=== PATIENT | male | born 1945 | race Caucasian/White ===

== ENCOUNTER → 2020-02-03 10:27 | Outpatient (BNVA) | payer MEDICARE, SELFPAY | PROVIDERS: PCP Family Medicine; Referring Provider Family Medicine; Visit Provider Nurse Practitioner Gerontology | DX: N40.1 Benign prostatic hyperplasia with lower urinary tract symptoms (principal); N13.8 Other obstructive and reflux uropathy; N32.89 Other specified disorders of bladder; I10 Essential (primary) hypertension | CPT/HCPCS: 81003; 99204 ==

== ENCOUNTER → 2020-04-05 09:08 | Outpatient (BNVA) | payer MEDICARE, SELFPAY | PROVIDERS: PCP Family Medicine; Referring Provider Family Medicine; Visit Provider Nurse Practitioner Gerontology | DX: N40.1 Benign prostatic hyperplasia with lower urinary tract symptoms (principal); N13.8 Other obstructive and reflux uropathy | CPT/HCPCS: 81003; 99213 ==

== ENCOUNTER 2020-06-30 08:32 | Outpatient (CLI) | payer MEDICARE, SELFPAY ==
--- NOTE | 2020-06-30 08:15 | DI.RAD_ITS ---
EXAM: XR HIP RT COMPLETE AP PELVIS CLINICAL HISTORY: right hip pain TECHNIQUE: COMPARISON: No exams were available for comparison FINDINGS: Views were obtained. The cartilaginous joint spaces of the hips appear fairly well maintained. Mild marginal osteophyte formation of the acetabula and femoral heads noted. No other significant bony a bnormality seen involving the hips. Partial left SI joint fusion noted. IMPRESSION: Mild DJD both hips. RADIATION DOSE DELIVERED: Total DLP
== END 2020-06-30 08:52 ==
PROVIDERS: PCP Family Medicine; Referring Provider Family Medicine; Visit Provider Student in an Organized Health Care Education/Training Program
DX: M16.0 Bilateral primary osteoarthritis of hip (principal)
CPT/HCPCS: 99203; 99214; 73502

== ENCOUNTER 2020-07-27 01:41 | Outpatient (CLI) | payer MEDICARE, SELFPAY ==
[2020-07-27] MEDS: Bupivacaine 0.5% Pres-Free 10 ML VIAL 5 ML IJ (14:52)
[2020-07-27] MEDS: Omnipaque 300 MG/ML 10 ML BTL IJ (14:57)
--- NOTE | 2020-07-27 22:31 | W.PROCNOTE ---
Date of service: 07/27/20 Time of Service: 13:01 Procedure Note Date of procedure: 07/27/20 Procedure: Right Hip Injection with Fluoroscopic Guidance Surgeon/Proceduralist/Physician: Edy Elmore Procedure Diagnosis: Right Hip Osteoarthritis Procedure Indications: Ryan has had persistent pain of the RIGHT hip and groin. Noninvasive measures have been tried. To serve as both diagnostic and therapeutic, an injection under fluoroscopy was recommended. I had discussed the risks of the procedure and the patient elected to proceed. Procedure Description: Ryan was greeted in the flouroscopy room. The correct side was identified and the consent was reviewed with the patient and signed. The patient was then placed in the supine position on the fluoroscopy table. The RIGHT hip was then prepped with Chloraprep. The anterolateral injection starting point was identiifed by bony landmarks and fluoroscopy. The skin and soft tissue in the tract of the injection was anesthetized with 1% Lidocaine. A spinal needle was then inserted deep into the hip joint at the level of the lateral femoral neck under fluoroscopic guidance. A small amount of Omnipaque solution was injected to confirm intraarticular placement. Once confirmed, the hip was injected with 6cc of 0.5% Bupivicaine and 80mg of Depo-Medrol. A bandaid was placed on the injection site. The patient tolerated the procedure well and noted improvement in pre-injection pain.
== END 2020-07-27 02:01 ==
PROVIDERS: PCP Family Medicine; Visit Provider Student in an Organized Health Care Education/Training Program
DX: M25.551 Pain in right hip (principal); M16.11 Unilateral primary osteoarthritis, right hip; R10.31 Right lower quadrant pain
CPT/HCPCS: 20610; 76000

== ENCOUNTER 2020-09-14 10:23 | Outpatient (CLI) | payer MEDICARE, SELFPAY | END 2020-09-14 10:43 | PROVIDERS: PCP Family Medicine; Referring Provider Family Medicine; Visit Provider Student in an Organized Health Care Education/Training Program | DX: M16.11 Unilateral primary osteoarthritis, right hip (principal); Z98.890 Other specified postprocedural states | CPT/HCPCS: 99213; 72170 ==

== ENCOUNTER 2020-10-05 00:56 | Outpatient (CLI) | payer MEDICARE, SELFPAY ==
[2020-10-06 18:54] LABS: COVID-19 RT-PCR UVMMC Result Negative (Negative)
== END 2020-10-05 01:16 ==
PROVIDERS: PCP Family Medicine; Visit Provider Student in an Organized Health Care Education/Training Program
DX: Z11.59 Encounter for screening for other viral diseases (principal); Z01.818 Encounter for other preprocedural examination
CPT/HCPCS: U0003

== ENCOUNTER 2020-10-05 02:50 | Outpatient (CLI) | payer MEDICARE, SELFPAY ==
[2020-10-05 10:27] LABS: HCT 44.5 % (40.0-50.0); HGB 15.1 g/dL (13.5-17.5); MCHC 33.9 % (32.0-36.0); MCV 97.2 fL (80-95); MPV 9.7 fL (8.0-11.0); Platelet Count 266 10^3/uL (130-400); RBC 4.58 10^6/uL (4.36-5.78); RDW 12.9 % (11.8-14.1); RDW-SD 46.5 fL; WBC 6.69 10^3/uL (4.4-10.8)
[2020-10-05 10:58] LABS: Anion Gap 6.4 mmol/L (3-11); BUN 14 mg/dL (7-18); CO2 29.6 mmol/L (21.0-32.0); CREATININE 1.13 mg/dL (0.70-1.30); Chloride 104 mmol/L (98-107); Glucose 91 mg/dL (74-106); Potassium 4.8 mmol/L (3.5-5.1); Sodium 140 mmol/L (136-145)
== END 2020-10-05 03:10 ==
PROVIDERS: PCP Family Medicine; Visit Provider Student in an Organized Health Care Education/Training Program
DX: M25.551 Pain in right hip (principal); M16.11 Unilateral primary osteoarthritis, right hip; Z01.818 Encounter for other preprocedural examination; Z01.812 Encounter for preprocedural laboratory examination
CPT/HCPCS: 36415; 80048; 85027; 86850; 86900; 86901; U0003

== ENCOUNTER 2020-10-11 06:00 | Day surgery (SDC) | payer MEDICARE, SELFPAY ==
[2020-10-11] VITALS (9 sets, daily range): BP systolic 82–110; BP diastolic 50–66; PULSE 53–58; RESP 12–18; TEMP 36.3–36.5; O2SAT 95–100
[2020-10-11] MEDS: Lactated Ringers 1,000 ML 30 ML IV (06:50)
[2020-10-11] MEDS: Acetaminophen 500 MG TAB 1000 MG PO (06:59)
[2020-10-11] MEDS: Celecoxib 200 MG CAP 400 MG PO (06:59)
--- NOTE | 2020-10-11 07:25 | W.PM.DS.N ---
Documented by User: Mariama Wilson 10/11/20 07:29 DS: Diagnosis Discharge Diagnosis (1) Degenerative joint disease of right hip: Status: Acute Discharge Plan Disposition Patient Disposition: HOME Condition: Good Discharge Details Reason For Visit: Right hip DJD Attending Provider: Edy Elmore Primary Care Provider: Joaquin Barajas Home Meds and New Rx's Prescriptions: New acetaminophen 500 mg tablet 500 mg PO Q6H PRN (Reason: pain) Qty: 60 RF: 2 aspirin 81 mg tablet,delayed release (DR/EC) 81 mg PO BID 30 Days Qty: 60 RF: 0 docusate sodium [Colace] 100 mg capsule 100 mg PO BID Qty: 30 RF: 0 oxycodone 5 mg tablet 5 mg PO Q6H PRN (Reason: severe post-operative pain) Qty: 12 RF: 0 pantoprazole 40 mg tablet,delayed release (DR/EC) 40 mg PO DAILY 30 Days Qty: 30 RF: 0 Continued nifedipine [Procardia XL] 90 mg tablet extended release 24hr 90 mg PO DAILY RF: 0 metoprolol succinate 50 mg tablet extended release 24 hr 50 mg PO DAILY RF: 0 spironolactone 25 mg tablet 25 mg PO DAILY RF: 0 tamsulosin 0.4 mg capsule 0.4 mg PO DAILY RF: 0 Discharge Instructions Additional Instructions: Total Hip Discharge Instructions Activity: The most important activity is to walk. You should try to take short walks a few times a day. You have no restrictions on movement or positioning, but do not try to force what you do. You will find some stiffness and weakness with hip flexion (lifting your knee). Do not try to strengthen this too early, continue to practice walking and stairs and this will come. - Outpatient physical therapy can be helpful to help return you to a normal gait and improve your flexibility and strength. This can start around 2 weeks. For some patients, it?s not necessary. Usually this is determined at the time of discharge or at the first post-operative visit. - You should wear the DORY hose on both legs for 2 weeks. Dressing: Keep the surgical dressing in place for at least one week. After the first week it may be removed and replace with light gauze and tape or nothing. It may get wet after 3 days but avoid soaking the dressing. If it gets wet, just lightly pat dry. It is important to always keep some gauze between skin folds, especially when you are sitting. Spend some time with the wound exposed when you are lying flat as the incision does wrinkle onto itself. Medications: - You should take Tylenol and an anti-inflammatory Celebrex as your primary pain control medications. If the Celebrex is too expensive or not covered, please call the office for another alternative (Advil/Ibuprofen or Naproxen/Aleve). - You have been prescribed a stronger pain medication Oxycodone for breakthrough pain, take as needed as prescribed. - You have also been prescribed a stomach acid reduction agent Pantoprozole to help reduce stomach acid and reflux. - You will be taking Aspirin 81mg twice a day for DVT prevention unless instructed otherwise. - If you have constipation you should take Colace (which was prescribed) or Miralax (which you may purchase [id number]). It takes most people 3-4 days to have a bowel movement. Follow-up: 2 weeks If you have any acute concerns or questions, please do not hesitate to contact the office at [phone]. You may contact Dr. Elmore with any questions after hours through the hospital at [phone] or on his cell phone at [phone]. Referrals: Edy Elmore MD [ [facility] STAFF PHYSICIAN] - Equipment/Supplies: Walker Activity:: Activity as Tolerated Remove Dressings/Wound Care:: Do Not Remove Shower/Bathe:: 72 hours Diet:: As Tolerated Discharge Orders Discharge Orders: Discharge Order (Routine); Ordered 10/11/20 Ordered By: Edy Elmore DS: Data Vitals/I&O Vitals and I&O: Vital Signs Temperature 36.5 C 10/11/20 06:25 Pulse 54 L 10/11/20 06:25 Pulse Rhythm Regular 10/11/20 06:25 Respiratory Rate 16 10/11/20 06:25 Respiratory Depth Normal 10/11/20 06:25 Blood Pressure 104/66 10/11/20 06:25 Pulse Oximetry 99 10/11/20 06:25 Oxygen Delivery Method Room Air 10/11/20 06:25 Oxygen Flow Rate 0 10/11/20 06:25 Pain Level 0 10/11/20 06:25 Intake & Output 10/10/20 10/10/20 10/11/20 11:59 23:59 11:59 Weight 73.6 kg PFSH Medical History (Updated 10/11/20 @ 06:30 by Nabila Mccabe) Degenerative joint disease of right hip History of back injury History of melanoma History of trigger finger Hypertension Surgical History (Updated 10/11/20 @ 06:30 by Nabila Mccabe) History of esophagogastroduodenoscopy (EGD) Hx of colonoscopy Social History Smoking/Tobacco Use Status: Never Smoking risk assessment performed?: Yes Alcohol Intake: current Alcohol Intake frequency: 0-2 drinks per day Alcohol type: beer, wine and hard liquor Drug use: Never Substance use type: does not use Do you feel safe at home: Yes Do you feel safe in your relationship?: Yes Documented by User: Edy Elmore MD 10/11/20 12:00 Date of service: 10/11/20 Time of Service: 11:59 Discharge Plan Disposition Patient Disposition: HOME Condition: Good Discharge Details Reason For Visit: Right hip DJD Attending Provider: Edy Elmore Primary Care Provider: Joaquin Barajas Home Meds and New Rx's Prescriptions: New acetaminophen 500 mg tablet 500 mg PO Q6H PRN (Reason: pain) Qty: 60 RF: 2 aspirin 81 mg tablet,delayed release (DR/EC) 81 mg PO BID 30 Days Qty: 60 RF: 0 docusate sodium [Colace] 100 mg capsule 100 mg PO BID Qty: 30 RF: 0 oxycodone 5 mg tablet 5 mg PO Q6H PRN (Reason: severe post-operative pain) Qty: 12 RF: 0 pantoprazole 40 mg tablet,delayed release (DR/EC) 40 mg PO DAILY 30 Days Qty: 30 RF: 0 Continued nifedipine [Procardia XL] 90 mg tablet extended release 24hr 90 mg PO DAILY RF: 0 metoprolol succinate 50 mg tablet extended release 24 hr 50 mg PO DAILY RF: 0 spironolactone 25 mg tablet 25 mg PO DAILY RF: 0 tamsulosin 0.4 mg capsule 0.4 mg PO DAILY RF: 0 Discharge Instructions Additional Instructions: Total Hip Discharge Instructions Activity: The most important activity is to walk. You should try to take short walks a few times a day. You have no restrictions on movement or positioning, but do not try to force what you do. You will find some stiffness and weakness with hip flexion (lifting your knee). Do not try to strengthen this too early, continue to practice walking and stairs and this will come. - Outpatient physical therapy can be helpful to help return you to a normal gait and improve your flexibility and strength. This can start around 2 weeks. For some patients, it?s not necessary. Usually this is determined at the time of discharge or at the first post-operative visit. - You should wear the DORY hose on both legs for 2 weeks. Dressing: Keep the surgical dressing in place for at least one week. After the first week it may be removed and replace with light gauze and tape or nothing. It may get wet after 3 days but avoid soaking the dressing. If it gets wet, just lightly pat dry. It is important to always keep some gauze between skin folds, especially when you are sitting. Spend some time with the wound exposed when you are lying flat as the incision does wrinkle onto itself. Medications: - You should take Tylenol and an anti-inflammatory Celebrex as your primary pain control medications. If the Celebrex is too expensive or not covered, please call the office for another alternative (Advil/Ibuprofen or Naproxen/Aleve). - You have been prescribed a stronger pain medication Oxycodone for breakthrough pain, take as needed as prescribed. - You have also been prescribed a stomach acid reduction agent Pantoprozole to help reduce stomach acid and reflux. - You will be taking Aspirin 81mg twice a day for DVT prevention unless instructed otherwise. - If you have constipation you should take Colace (which was prescribed) or Miralax (which you may purchase [id number]). It takes most people 3-4 days to have a bowel movement. Follow-up: 2 weeks If you have any acute concerns or questions, please do not hesitate to contact the office at [phone]. You may contact Dr. Elmore with any questions after hours through the hospital at [phone] or on his cell phone at [phone]. Referrals: Edy Elmore MD [ [facility] STAFF PHYSICIAN] - Equipment/Supplies: Walker Activity:: Activity as Tolerated Remove Dressings/Wound Care:: Do Not Remove Shower/Bathe:: 72 hours Diet:: As Tolerated Discharge Orders Discharge Orders: Discharge Order (Routine); Ordered 10/11/20 Ordered By: Edy Elmore DS: Summary Status at Discharge Functional status at discharge: uses cane/walker Overall status at discharge: patient is progressing back to baseline Mental Status: mental status grossly normal Speech and Movement: speech and movement normal Mood: congruent mood Affect: normal affect Exam Psych Mental Status: mental status grossly normal Speech and Movement: speech and movement normal Mood: congruent mood Affect: normal affect [facility] Medical History (Updated 10/11/20 @ 06:30 by Nabila Mccabe) Degenerative joint disease of right hip History of back injury History of melanoma History of trigger finger Hypertension Surgical History (Updated 10/11/20 @ 06:30 by Nabila Mccabe) History of esophagogastroduodenoscopy (EGD) Hx of colonoscopy Social History Smoking/Tobacco Use Status: Never Smoking risk assessment performed?: Yes Alcohol Intake: current Alcohol Intake frequency: 0-2 drinks per day Alcohol type: beer, wine and hard liquor Drug use: Never Substance use type: does not use Do you feel safe at home: Yes Do you feel safe in your relationship?: Yes
[2020-10-11] MEDS: ceFAZolin 2 GM/50 ML BAG IVPB (07:30)
[2020-10-11] MEDS: Bupivacaine 0.25% Pres-Free 30 ML VIAL (08:52)
[2020-10-11] MEDS: Ketorolac 30 MG/ML VIAL (08:52)
--- NOTE | 2020-10-11 08:55 | DI.RAD_ITS ---
EXAM: XR HIP RT IN OR CLINICAL HISTORY: Degenerative joint disease of right hip TECHNIQUE: 2D and realtime digital imaging was performed. COMPARISON: No exams were available for comparison FINDINGS: C-arm fluoroscopy was utilized by Dr. Elmore during placement total right hip prosthesis. Hard hat copyist y shows well seated femoral and acetabular components. Fluoro time, 45.2 seconds. IMPRESSION: RADIATION DOSE DELIVERED: Total DLP
--- NOTE | 2020-10-11 09:41 | W.PM.OP ---
Date of service: 10/11/20 Time of Service: 09:42 Operative Note Operative Note DATE OF PROCEDURE: 10/11/20 PRE-OP DIAGNOSIS: Right Hip Osteoarthritis POST-OP DIAGNOSIS: same PROCEDURE: Right Anterior Total Hip Arthroplasty SURGEON: Edy Elmore SOFTWARE DESIGN ANALYST: Mariama Wilosn ANESTHESIA: spinal ESTIMATED BLOOD LOSS: 100 PATHOLOGY: none sent COMPLICATIONS: None Patient was transported to: PACU Patient's condition: stable Implants: 1. Depuy [place] Acetabular Component, 52mm 2. Depuy Acetabular Liner, [id number] 3. Depuy Corail High Offset Femoral Stem, Size 12 4. Depuy Altrx Ceramic Femoral Head, Size 36+1.5mm Indications: I have seen Mr. Betancourt in clinic for symptoms of hip arthritis, confirmed with radiographic findings. He has exhausted nonoperative methods and was having significant limitations in daily function and desired better function and less pain. I discussed the technical details of a hip replacement. I explained the risks of the procedure to include, but not limited to, bleeding, infection, pain, stiffness, fracture, damage to nerves and vessels, damage to muscles and tendons, loosening, instability, leg length inequality, need for repeat procedure, blood clot and cardiopulmonary demise. Despite these risks, Ryan elected to proceed. Findings: There was significant signs of arthritis throughout the hip but focused to the superior femoral head and throughout the acetabulum. Procedure Description: Ryan was greeted in the preoperative holding area where the correct side was identified and marked. The consent was reviewed with the patient and signed. The history and physical was updated. All questions were answered. He was taken back to the operating room. A spinal anesthestic was then administered. The feet were wrapped with cast padding and Coban and then placed into the boot liners and then into the boots. Care was taken to protect the skin and make sure the heels were fully down and the boots were stable. The patient was then positioned onto the HANA table. Both legs were held in a neutral position. SCDs were applied. The patient was then slid down onto a peroneal post. A preoperative AP pelvis was obtained to serve as a reference for determining leg lengths. Prophylactic antibiotics in the form of Cefazolin were administered. 1g of Tranxemic Acid was given intravenously within 30 minutes of incision. The right leg was then prepped with Chloraprep and draped in a standard fashion. A second prep with Chloraprep was performed prior to placement of a shower-curtain type drape with Iodine impregnated skin protection. A timeout to confirm correct identity, side and site, procedure, allergies, anesthesia, and medical concerns was performed. An obliquely oriented incision was made starting lateral to the ASIS and running distal over the Tensor Fascia Nila (TFL) muscle belly toward the fibular head, approximately 10cm. The skin and soft tissue was dissected sharply, through Vijaya?s fascia, and to the fascia of the TFL. With the fascia and superior border of the IT band identified, the fascia was incised with a new knife just above any perforators from the IT band. The TFL muscle belly was bluntly dissected away from the fascia and moved laterally. The fat between TFL and rectus was identified to ensure the dissection was not within the TFL. Blunt dissection created space between abductors and the capsule and retractor was placed over the lateral femoral neck. The fibers of the rectus femoris tendon were identified and these were freed from the anterior capsule. A second cobra retractor was placed around the medial femoral neck. The TFL was further retracted laterally to show the deep fascia. Careful dissection through this layer identified three main crossing vessels of the lateral femoral circumflex. These were cauterized in multiple locations and then cut without any noticeable bleeding. The TFL was further released bluntly from the deep fascia to expose anterior hip capsule and fat The Greg orthopaedic retractor was then placed beneath the TFL and against sartorius and medial soft tissues to protect and retract the soft tissues. A T-capsulotomy was then performed starting at the superior lateral acetabulum and moving distally to the intertrochanteric ridge. These capsular flaps were tagged with a No. 1 Ethibond and elevated from within. The capsular flaps were released to the shoulder of the lateral neck and to the lesser trochanter to give excellent visualization of the proximal femur. A neck osteotomy was performed using an oscillating saw based on preoperative templates. This cut started in the shoulder and of the lateral neck and exited medially. The saw was at all times directed medially to avoid injury to the greater trochanter. 6cm of traction was applied to the leg and the osteotomy opened. The femoral head was removed with a corkscrew, making sure to protect the TFL on its exit. Traction was released after head removal. This was measured on the back table to determine the starting reamer size. Portions of the rectus obscuring visualization were minimally elevated off the superior acetabulum. An anterior retractor was placed over the anterior wall between capsule and labrum and attached to the Gripper retraction system. The femur was rotated to 90 degrees and medial capsule was fully released until the lesser trochanter was palpable and visible; the femur was returned to 30 degrees. A posterior retractor was placed similarly between capsule and labrum. This provided excellent visualization. The contents of the cotyloid fossa were removed with electrocautery and the labrum was removed with a knife. There was a notable floor osteophyte. There was significant chondromalacia of the superior acetabulum. Acetabular reaming began with a 48mm reamer. This first reaming was directed anterior to posterior and medial to get down to the true floor. This was inspected and reamed until the true floor was reached. The anterior retractor was then released and entry and exit was provided by traction on the capsular flaps. I then reamed sequentially up to a 52mm reamer where good fit was obtained. The larger reamers were oriented based on anatomical reference of the anterior and lateral hassan to ensure proper abduction and anteversion. Positioning and size was confirmed with the fluoroscopy. A 48mm Depuy [place] acetabular component was selected. The acetabulum was reamed around the periphery with the selected acetabular size to prevent a rim fit. The deep tissues were irrigated. The acetabular component was then impacted in a position of about 40-45 degrees of abduction and 15-20 degrees of anteversion, using the patient?s anatomy as the ultimate landmark. Fluoroscopy was used to confirm this. There was excellent coastal/harbor defense officer of the acetabular component and the inserting handle was removed. The acetabular liner, Depuy [id number] polyethylene liner, was inserted and lined up with the tines of the acetabular component. There was no soft tissue interposition. The liner was then impacted into position and confirmed to be well-seated. A portion of the shankar-articular cocktail was then injected around the acetabulum into the capsule and periosteum. This cocktail consisted of 50cc of 0.25% Bupivicaine and 20cc of Exparel and 30mg of Ketorolac. The leg was rotated to 120 degrees. Any remaining medial capsule was released until the lesser trochanter was easily palpable. A retractor was placed medially. The lateral capsule was further released into the shoulder to allow access to the greater trochanter. A Shipley retractor was placed over the greater trochanter which allowed the trochanter to flip in front of the capsule for excellent exposure. The leg was brought down into maximal extension and 20 degrees of adduction while ensuring there was no impingement on the acetabulum. Any remnant capsule within the trochanter was released. Piriformis and obturator externis were identified and protected. There was excellent access to the proximal femur. The lateral neck remnant was removed with a rongeur. A blunt canal probe was used to identify the canal and trajectory for later broaching. A box osteotome initiated the broach course. A small curved rasp and a curved curette were used to work laterally. Broaching then began with a size 8 Corail broach. This was inserted manually around the trochanter and into the canal before mallet blows. The broach was seated to the neck cut level based on the neck cut and the preoperative template. Sequential broaching was continued with the [employer] pneumatic broaching device until a tight fit was obtained with good rotational control of the femur. A trial Coxa Vara neck was inserted along with a +1.5 trial head. The leg was brought out of extension and adduction and then reduced with traction and internal rotation. The leg was stable anteriorly in a position of 30 degrees of extension and 90 degrees of external rotation. Fluoroscopy was used to ensure there was no fracture and the stem was seated well. Leg lengths were checked with an AP pelvis and pelvic reference points. [employer] navigation system was used to confirm appropriate positioning and leg length and offset. This appropriately corrected the offset but under corrected the leg length, so I went up to a high offset stem. Once content with the desired offset and leg lengths, the leg was brought back into extension, external rotation and adduction. The periosteum and surrounding tissue was injected with remaining portion of the shankar-articular cocktail. The proximal femur was irrigated as well as the deep tissues. The Depuy Corail High Offset stem, size 12, was then manually inserted into the proximal femur making sure to control rotation. It was then malleted into position with light blows, giving breaks to allow bone expansion and decrease risk of fracture. The selected Depuy Altrx Ceramic Head, size 36+1.5mm, was then placed onto the clean and dry trunnion and secured with impaction onto the tapered fit. The leg was brought back out of extension and adduction and reduced with traction and internal rotation. Stability was confirmed with no shuck at 90 degrees of external rotation and 30 degrees of extension. No impingement through range of motion arc. Final x-ray images were obtained with fluoroscopy to confirm adequate positioning and no intraoperative fracture. The deep tissues were thoroughly irrigated with Irrisept chlorhexadine solution. The second dose of TXA 1g was administered intravenously.The capsule was then reapproximated with the previously placed Ethibond sutures. At this point, there was some bleeding seen from within the hip. It was not coming from the circumflex vessels nor from the vastus border. It seemed to be coming from the deep, posterior capsule and muscle. There was no visible arterial component and the bleeding was not vigorous but more than encountered during the case. Since I could find no source of bleeding, I decided to close the fascia and allow tampanade to occur. The TFL fascia was finally closed with a No. 2 Stratafix, barbed suture. Deep tissues were then reapproximated with 0 Vicryl and a running 2-0 Vicryl. The skin was closed with a running 4-0 Monocryl in a subcuticular fashion. This was reinforced with skin glue. A Mepilex silver dressing was applied. At the end of the case, all counts were correct. Ryan was transferred to the hospital bed without difficulty and suffering no apparent complication. He has a good prognosis. Physical therapy will start today and without restrictions, weight-bearing as tolerated. Aspirin 81mg BID will be used for DVT prophylaxis.
--- NOTE | 2020-10-11 10:50 | PT.INIE ---
Date of service: 10/11/20 Time of Service: 10:50 PT Notes Visit Reasons: Right hip DJD Physical Therapy Inpatient Initial Evaluation Date: 10/11/2020 Referring Doctor: Edy Elmore MD PT Orders: PT CONSULT: Status post Ortho surgery. Status post right anterior ARIELA. Precautions: Fall. Standard. WBAT on right LE Patient Profile/Admitting Diagnosis: Ryan is a 75-year-old male with degenerative joint disease of the right hip and is status post right anterior total hip arthroplasty on postoperative day 0. PMHX: Medical History Degenerative joint disease of right hip History of melanoma Social History/Home Situation: Lives with in a private home with 2 steps to enter with bilateral rails. 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 He will receive the help of his daughter Isis in providing continued care for his as Ryan recovers. Independent with all activities of daily living prior to surgery. Has had no falls in the past year. Equipment Owned/DME: Has a front wheeled walker Subjective: Agreeable to PT consult. He indicates that although he has been independent with everything prior to surgery he has been increasingly limping due to his arthritic condition in the right hip. He states that he has been a longtime caregiver of his and feels secure about having his daughter come to help with her care as he recovers. Objective: General Observation: Supine in bed. Bilateral TDS. Cold pack on right surgical incision. Mental Status: Alert and oriented x4 Pain: Reported pain in the right hip at 3?4/10 pain initially Vital Signs: Blood pressure became soft at 85/54 after ambulation activity with patient reporting some mild lightheadedness. ROM: Right Upper Extremity: Shoulder Flexion WFL. Shoulder abduction WFL. Elbow flexion WFL. Wrist flexion WFL. Opening and closing of hand WFL. Left Upper Extremity: Shoulder Flexion WFL. Shoulder abduction WFL. Elbow flexion WFL. Wrist flexion WFL. Opening and closing of hand WFL. Right Lower Extremity: Hip flexion WFL. Hip abduction WFL. Knee flexion WFL. Ankle dorsiflexion WFL. Ankle plantarflexion WFL. Left Lower Extremity: Hip flexion WFL. Hip abduction WFL. Knee flexion WFL. Ankle dorsiflexion WFL. Ankle plantarflexion WFL. Strength: Right Upper Extremity: Shoulder flexors 5/5. Shoulder abductors 5/5. Elbow flexors 5/5. Elbow extensors 5/5. Dye Line Operator strong. Left Upper Extremity: Shoulder flexors 5/5. Shoulder abductors 5/5. Elbow flexors 5/5. Elbow extensors 5/5. Dye Line Operator strong. Right Lower Extremity: Hip flexors 4/5. Hip abductors 4/5. Knee flexors 5/5. Knee extensors 4/5. Ankle dorsiflexors 5/5. Ankle plantarflexors 5/5. Left Lower Extremity:Hip flexors 5/5. Hip abductors 5/5. Knee flexors 5/5. Knee extensors 5/5. Ankle dorsiflexors 5/5. Ankle plantarflexors 5/5. Sensation: Intact as to pain and pressure on bilateral lower extremities. Bed Mobility/Transfers: Supine to sit independent Sit to stand contact-guard assist Stand to sit supervision Bed to chair supervision Gait: Guided patient through level surface ambulation with cues provided for safe technique and correct gait pattern as well as walker management. Covered 100 feet using the front wheeled walker requiring contact-guard assist. Reported lightheadedness after activity. Nurse Nabila remeasured blood pressure and it was found to be at 85/54 mmHg. Further mobility assessment was deferred and both patient and nurse Dahl were agreeable to a second session in the afternoon for stair negotiation and more ambulation activity. THERA EX: Instruction given on performing bilateral heel raises and partial knee bends x10 prior to initiating ambulation activity. Balance: Static Sitting: Normal Dynamic Sitting: Normal Static Standing: Fair Dynamic Standing: Fair Special Tests: Mobility Limitations Standardized Measure [facility] AM-PAC 6 clicks Basic Mobility Inpatient Short Form: Raw Score: 19 CMS Score: 42% deficit Informed Consent/Education: Patient instructed in purpose of PT consult and plan of care for today. Assessment: Ryan demonstrates the need for a front wheeled walker for all mobility ADL performance to maximize independence and reduce fall risk at home. He will have adequate support from his daughter in terms of provision of caregiving for , meal preparation, laundry, and house chores as he recovers. Patient presents with clinical signs and symptoms consistent with current/admitting diagnoses that have resulted to mobility limitations, gait instability, generalized weakness, and impairment of motor control as demonstrated by the following impairment level findings: 1. Impaired standing balance 2. Impaired activity tolerance 3. Lightheadedness Impairments are contributing to the following functional limitations: 1. Inability to safely ambulate without assistive device 2. Increase completion time for mobility ADL performance 3. Increased fall risk 4. Inability to negotiate steps alone safely Patient is assessed as a 11380 moderate complexity based on the following: History: 75-year-old male with impairment level findings, functional limitations, and past medical history as indicated above Examination: Demonstrable impairment in strength, balance, and mobility level with underlying impairments and functional limitations as documented above Presentation:Evolving Decision Makin moderate complexity Goals: N/A. PT evaluation and 1 treatment session only for functional mobility training using the 4 wheeled walker and HEP instruction. Plan of Care/Treatment Plan: N/A. PT evaluation and 1 treatment session only for functional mobility training using the 4 wheeled walker and HEP instruction. DISCHARGE RECOMMENDATIONS: Home when cleared by orthopedic surgeon. Outpatient physical therapy services in order to maximize functional mobility outcomes and independence. TREATMENT CODE/TIME: 06906 x 20 minutes, 54491 x 10 minutes beginning at 10:50 AM. Thank you for the opportunity to participate in the care of this patient. Noemi Swift PT, DPT, CLT [facility] [employer], [place]
[2020-10-11] MEDS: Tamsulosin 0.4 MG CAPCR PO (12:02)
--- NOTE | 2020-10-11 12:58 | PT.INDS ---
Date of service: 10/11/20 Time of Service: 12:58 PT Notes Visit Reasons: Right hip DJD Physical Therapy Inpatient Discharge Summary Date: 10/11/2020 Referring Doctor: Edy Elmore MD PT Orders: PT CONSULT: Status post Ortho surgery. Status post right anterior ARIELA. Precautions: Fall. Standard. WBAT on right LE Subjective: Reports that he feels a lot better after having had something to eat and having slept for a little bit. Denies dizziness throughout session in the afternoon. Hopeful about going home as soon as possible. Objective: General Observation: Supine in bed. Bilateral TDS. Cold pack on right surgical incision. Mental Status: Alert and oriented x4 Pain: Reported pain in the right hip at 3?4/10 pain initially ROM: Right Upper Extremity: Shoulder Flexion WFL. Shoulder abduction WFL. Elbow flexion WFL. Wrist flexion WFL. Opening and closing of hand WFL. Left Upper Extremity: Shoulder Flexion WFL. Shoulder abduction WFL. Elbow flexion WFL. Wrist flexion WFL. Opening and closing of hand WFL. Right Lower Extremity: Hip flexion WFL. Hip abduction WFL. Knee flexion WFL. Ankle dorsiflexion WFL. Ankle plantarflexion WFL. Left Lower Extremity: Hip flexion WFL. Hip abduction WFL. Knee flexion WFL. Ankle dorsiflexion WFL. Ankle plantarflexion WFL. Strength: Right Upper Extremity: Shoulder flexors 5/5. Shoulder abductors 5/5. Elbow flexors 5/5. Elbow extensors 5/5. Novelty Twister Operator strong. Left Upper Extremity: Shoulder flexors 5/5. Shoulder abductors 5/5. Elbow flexors 5/5. Elbow extensors 5/5. Novelty Twister Operator strong. Right Lower Extremity: Hip flexors 4/5. Hip abductors 4/5. Knee flexors 5/5. Knee extensors 4/5. Ankle dorsiflexors 5/5. Ankle plantarflexors 5/5. Left Lower Extremity:Hip flexors 5/5. Hip abductors 5/5. Knee flexors 5/5. Knee extensors 5/5. Ankle dorsiflexors 5/5. Ankle plantarflexors 5/5. Sensation: Intact as to pain and pressure on bilateral lower extremities. Bed Mobility/Transfers: Supine to sit independent Sit to stand supervision Stand to sit supervision Bed to chair supervision Gait: Guided patient through level surface ambulation with cues provided for safe technique and correct gait pattern as well as walker management for 100 feet + 100 feet using the front wheeled walker requiring stand by assist report of increased pain nor of lightheadedness. Stairs: Training provided provided to negotiate up and down six 4 inch steps while holding onto 1 rail and with hand-held assist of PT on the other side with no increase in pain and no report of lightheadedness. THERA EX: Instruction given on correct performing seated level exercises comprised of seated hip flexion x 10 and LAQs x 10 as well as of standing level exercises consisting of bilateral heel raises x 10, partial knee bends x 10, hip abduction x 10, knee flexionx 10. Written instruction with illustration was provided. Balance: Static Sitting: Normal Dynamic Sitting: Normal Static Standing: Fair Dynamic Standing: Fair Assessment: Ryan demonstrates the need for a front wheeled walker for all mobility ADL performance to maximize independence and reduce fall risk at home. He will have adequate support from his daughter in terms of provision of caregiving for , meal preparation, laundry, and house chores as he recovers. Goals: N/A. PT evaluation and 1 treatment session only for functional mobility training using the 4 wheeled walker and HEP instruction. Plan of Care/Treatment Plan: N/A. PT evaluation and 1 treatment session only for functional mobility training using the 4 wheeled walker and HEP instruction. Exercises were created, printed and handed off to patient for increased exercise compliance at home. DISCHARGE RECOMMENDATIONS: Home when cleared by orthopedic surgeon. Outpatient physical therapy services in order to maximize functional mobility outcomes and independence. TREATMENT CODE/TIME: 73859 x 15 minutes, 10485 x 12 minutes beginning at 12:58 PM. Thank you for the opportunity to participate in the care of this patient. oNemi Swift PT, DPT, CLT [facility] [place], [place]
== END 2020-10-11 14:30 | disposition home or self-care (01) ==
PROVIDERS: PCP Family Medicine; Visit Provider Student in an Organized Health Care Education/Training Program
PROC: (CPT 27130; principal; 2020-10-11 07:30)
DX: M16.11 Unilateral primary osteoarthritis, right hip (principal); M25.551 Pain in right hip; Z96.641 Presence of right artificial hip joint; I10 Essential (primary) hypertension
CPT/HCPCS: 27130; 20985; C1776; 97110; 97162; 97530; NC; 73501; J0690; J1885; J2001; J2405

== ENCOUNTER 2020-10-26 14:19 | Outpatient (CLI) | payer MEDICARE, SELFPAY ==
--- NOTE | 2020-10-26 12:30 | DI.RAD_ITS ---
EXAM: XR HIP RT COMPLETE AP PELVIS CLINICAL HISTORY: 1st post op R ARIELA TECHNIQUE: COMPARISON: CR XR PELVIS AP from 09/14/2020 FINDINGS: Three views were obtained. There is a total hip joint prosthesis in position on the right. The comp onents appear well seated. Mild degenerative changes of the left hip noted. IMPRESSION: RADIATION DOSE DELIVERED: Total DLP
== END 2020-10-26 14:39 ==
PROVIDERS: PCP Family Medicine; Referring Provider Family Medicine; Visit Provider Physician Assistant
DX: Z96.641 Presence of right artificial hip joint (principal)
CPT/HCPCS: 73502

== ENCOUNTER → 2020-11-27 09:00 | Outpatient (BNVA) | payer MEDICARE, SELFPAY | PROVIDERS: PCP Family Medicine; Referring Provider Family Medicine; Visit Provider Student in an Organized Health Care Education/Training Program | DX: Z47.1 Aftercare following joint replacement surgery (principal); Z96.641 Presence of right artificial hip joint ==

== ENCOUNTER → 2021-04-03 12:36 | Outpatient (BNVA) | payer MEDICARE, SELFPAY | PROVIDERS: PCP Family Medicine; Referring Provider Family Medicine; Visit Provider Nurse Practitioner Gerontology | DX: N40.1 Benign prostatic hyperplasia with lower urinary tract symptoms (principal); N13.8 Other obstructive and reflux uropathy | CPT/HCPCS: 99214 ==

== ENCOUNTER → 2021-09-25 14:12 | Outpatient (BNVA) | payer MEDICARE, SELFPAY | PROVIDERS: PCP Family Medicine; Referring Provider Family Medicine; Visit Provider Nurse Practitioner Gerontology | DX: N40.1 Benign prostatic hyperplasia with lower urinary tract symptoms (principal); N13.8 Other obstructive and reflux uropathy | CPT/HCPCS: 99213 ==

== ENCOUNTER 2021-10-01 09:35 | Outpatient (CLI) | payer MEDICARE, SELFPAY ==
--- NOTE | 2021-10-01 09:34 | DI.RAD_ITS ---
Exam(s) XR HIP RT AP LAT ONLY EXAM: XR HIP RT AP LAT ONLY INDICATION: ANNUAL F/U R ARIELA. COMPARISON: CR XR HIP RT COMPLETE AP PELVIS from 10/26/2020 TECHNIQUE: 2D digital imaging was performed. FINDINGS: There has been no change in the alignment of the right hip prosthesis or appearance of the surroundin g bone. No abnormal lucencies. Vascular calcifications are again noted. DATA REPOSITORY: RADIATION DOSE DELIVERED:
== END 2021-10-01 09:36 | disposition home or self-care (01) ==
LOC: DIORS 09:35
PROVIDERS: PCP Family Medicine; Referring Provider Family Medicine; Visit Provider Student in an Organized Health Care Education/Training Program
DX: Z96.641 Presence of right artificial hip joint (principal); Z47.1 Aftercare following joint replacement surgery
CPT/HCPCS: 99212; 73502

== ENCOUNTER → 2022-03-07 10:29 | Outpatient (BNVA) | payer MEDICARE, SELFPAY | PROVIDERS: PCP Family Medicine; Referring Provider Family Medicine; Visit Provider Nurse Practitioner Gerontology | DX: N40.1 Benign prostatic hyperplasia with lower urinary tract symptoms (principal); N13.8 Other obstructive and reflux uropathy | CPT/HCPCS: 51798; 99214 ==

== ENCOUNTER → 2023-03-03 13:02 | Outpatient (BNVA) | payer MEDICARE, SELFPAY | PROVIDERS: PCP Family Medicine; Referring Provider Family Medicine; Visit Provider Nurse Practitioner Gerontology | DX: N40.1 Benign prostatic hyperplasia with lower urinary tract symptoms (principal); N13.8 Other obstructive and reflux uropathy | CPT/HCPCS: 51798; 99213 ==

== ENCOUNTER → 2023-06-09 08:51 | Outpatient (BNVA) | payer MEDICARE, SELFPAY | PROVIDERS: PCP Family Medicine; Referring Provider Family Medicine; Visit Provider Nurse Practitioner Gerontology | DX: N40.1 Benign prostatic hyperplasia with lower urinary tract symptoms (principal); N13.8 Other obstructive and reflux uropathy | CPT/HCPCS: 51798; 99213 ==

== ENCOUNTER 2023-08-18 14:32 | Outpatient (CLI) | payer MEDICARE, SELFPAY ==
--- NOTE | 2023-08-18 13:30 | DI.RAD_ITS ---
Exam(s) XR KNEE RT 2V AP,LAT XR STANDING ALIGNMENT EXAM: XR STANDING ALIGNMENT and XR knee RT 2 V CLINICAL HISTORY: RIGHT KNEE PAIN. TECHNIQUE: 2D digital imaging was performed. Five images were obtained. COMPARISON: CR XR HIP RT COMPLETE AP PELVIS from 10/26/2020 CR XR HIP RT AP LAT ONLY from 10/01/2021 FINDINGS: BONES: The patient has a right total hip replacement which appears stable. There are degenerative ch anges seen in the right knee with joint space narrowing and osteophytes. There is chondrocalcinosis in the femoral tibial joint. There is also narrowing of the patellofemoral joint. No joint effusion is seen on the right. The left knee appears well maintained. The ankles are well maintained.The le ft lower extremity slightly longer than the right lower extremity. SOFT TISSUE: Normal. IMPRESSION: Degenerative changes in the right knee. DATA REPOSITORY: RADIATION DOSE DELIVERED:
== END 2023-08-18 14:33 | disposition home or self-care (01) ==
LOC: DIORS 14:33
PROVIDERS: PCP Family Medicine; Referring Provider Family Medicine; Visit Provider Student in an Organized Health Care Education/Training Program
DX: M17.11 Unilateral primary osteoarthritis, right knee
CPT/HCPCS: 99213; 73560; 77073

== ENCOUNTER 2023-09-12 18:43 | Outpatient (CLI) | payer MEDICARE, SELFPAY ==
[2023-09-12 16:00] LABS: HCT 44.6 % (40.0-50.0); HGB 14.9 g/dL (13.5-17.5); MCH 31.4 pg (27.0-33.0); MCHC 33.4 % (32.0-36.0); MCV 94 fL (80-95); MPV 9.1 fL (8.0-11.0); Platelet Count 320 10^3/uL (130-400); RBC 4.75 10^6/uL (4.36-5.78); RDW 13.3 % (11.8-14.1); RDW-SD 46.5 fL; WBC 8.59 10^3/uL (4.4-10.8)
[2023-09-12 16:23] LABS: Anion Gap 9.9 mmol/L (3-11); BUN 15 mg/dL (7-18); CO2 27.1 mmol/L (21.0-32.0); CREATININE 1.2 mg/dL (0.70-1.30); Calcium 9.5 mg/dL (8.5-10.1); Chloride 105 mmol/L (98-107); Estimated GFR 61.13 (mL/min/1.73m2); Glucose 112 mg/dL (74-106); Potassium 3.8 mmol/L (3.5-5.1); Sodium 142 mmol/L (136-145)
== END 2023-09-12 18:44 | disposition home or self-care (01) ==
LOC: LBO 18:43
PROVIDERS: PCP Family Medicine; Visit Provider Student in an Organized Health Care Education/Training Program
DX: M17.11 Unilateral primary osteoarthritis, right knee (principal); Z01.818 Encounter for other preprocedural examination
CPT/HCPCS: 36415; 80048; 85027

== ENCOUNTER 2023-09-23 07:07 | Day surgery (SDC) | payer MEDICARE, SELFPAY ==
[2023-09-23] VITALS (10 sets, daily range): BP systolic 103–130; BP diastolic 43–65; PULSE 59–73; RESP 11–19; TEMP 36–36.6; O2SAT 94–99; BMI 24.2
[2023-09-23] MEDS: Lactated Ringers 1,000 ML 80 ML IV (07:41)
[2023-09-23] MEDS: Gabapentin 300 MG CAP PO (07:42)
[2023-09-23] MEDS: Celecoxib 200 MG CAP 400 MG PO (07:43)
[2023-09-23] MEDS: Acetaminophen 500 MG TAB 1000 MG PO (07:43)
--- NOTE | 2023-09-23 07:44 | W.ANESPRE ---
General Info Date of Service Date Performed: 09/23/23 Height: 5 ft 10 in Weight: 76.5 kg Body Mass Index (BMI): 24.2 Surgical Procedure: Operation Date: 09/23/23 09:25 Proposed Procedure Side Surgeon p Knee Total Arthroplasty, Cementless CR Right Edy Elmore MD Meds Allergies and Home Medications Allergies Allergy/AdvReac Type Severity Reaction Status Date / Time No Known Allergies Allergy Unverified 09/23/23 07:16 Home Medication Medication Instructions Recorded nifedipine 90 mg tablet,extended 90 mg PO DAILY 02/03/20 release 24 hr (Procardia XL) spironolactone 25 mg tablet 25 mg PO DAILY 02/03/20 tamsulosin 0.4 mg capsule 0.8 mg (2 x 0.4 mg) PO DAILY #180 03/03/23 caps metoprolol succinate 50 mg 25 mg PO DAILY 08/18/23 tablet,extended release 24 hr mv-mn-folic 200 mcg-vit K 15 1 cap PO DAILY 08/18/23 mcg-lutein 5 mg-zeaxanthin 1 mg capsule (PreserVision AREDS 2 Plus Multivit) Current Visit Medications: Current Medications Generic Name Dose Route Start Last Admin Trade Name Freq PRN Reason Stop Dose Admin Acetaminophen 1,000 mg 09/23/23 06:00 09/23/23 07:43 Acetaminophen 500 Mg Tab PO 09/23/23 16:00 1,000 mg PREOP ASHLEY Administration Celecoxib 400 mg 09/23/23 06:00 09/23/23 07:43 Celecoxib 200 Mg Cap PO 09/23/23 16:00 400 mg PREOP ASHLEY Administration Docusate Sodium 100 mg 09/23/23 07:39 Docusate Sodium 100 Mg Cap PO 10/23/23 07:38 BID PRN PRN Constipation Gabapentin 300 mg 09/23/23 06:00 09/23/23 07:42 Gabapentin 300 Mg Cap PO 09/23/23 16:00 300 mg PREOP ASHLEY Administration Hydromorphone HCl 0.5 mg 09/23/23 07:39 Hydromorphone 2 Mg/Ml Syr IVP 10/23/23 07:38 Q2H PRN PRN Tranexamic Acid 1,000 mg/ 60 mls @ 360 mls/hr 09/23/23 06:00 Sodium Chloride IVPB 09/23/23 16:00 PREOP ASHLEY Ringer's Solution 1,000 mls @ 80 mls/hr 09/23/23 06:00 09/23/23 07:41 IV 09/23/23 23:59 80 mls/hr INFUSION ASHLEY Administration Cefazolin Sodium/Dextrose 2 gm in 50 mls @ 100 mls/hr 09/23/23 06:00 Ancef Duplex IVPB 09/23/23 23:59 PREOP ASHLEY Cefazolin Sodium/Dextrose 1 gm in 50 mls @ 100 mls/hr 09/23/23 08:00 Ancef Duplex IVPB 09/24/23 00:29 Q8H ASHLEY IV Miscellaneous Supplies 1 each 09/23/23 06:00 Iv Access IV 09/23/23 23:59 DIRECTED ASHLEY Ondansetron HCl 4 mg 09/23/23 07:39 Ondansetron 4 Mg/2 Ml Vial IVP 10/23/23 07:38 Q6H PRN PRN Nausea Oxycodone HCl 0 mg 09/23/23 07:39 Oxycodone 5 Mg Tab PO 10/23/23 07:38 Q3H PRN PRN Pain Sodium Chloride 0 ml 09/23/23 06:00 Normal Saline Flush 10 Ml Syr IV 09/23/23 23:59 PRN PRN Sodium Chloride 0 ml 09/23/23 06:00 Normal Saline 10 Ml Vial IJ 09/23/23 23:59 DIRECTED PRN Sterile Water 0 ml 09/23/23 06:00 Water,Injection,Sterile 10 Ml Vial IJ 09/23/23 23:59 DIRECTED PRN PFSH Active Problems Active Problems: Problem Status Onset Code Post-nasal drip R09.82 Osteoarthritis of right knee M17.11 Sensorineural hearing loss H90.5 BPH w urinary obs/LUTS N40.1, 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 hearing loss of both ears H90.3 Abnormal auditory perception of both ears H93.293 History of melanoma Z85.820 Medical History Medical History Hypertension Surgical History Surgical History Status post left rotator cuff repair History of trigger finger LMF History of back injury 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[facility] 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) History of esophagogastroduodenoscopy (EGD) Hx of colonoscopy Tobacco Smoking/Tobacco Use Status: Never Alcohol Alcohol Intake: current Alcohol intake frequency: 0-2 drinks per day Alcohol type: beer, wine and hard liquor Substance Use Substance use: Never Substance use type: does not use Vital Signs and Lab Results Vital Signs Most Recent Vital Signs in EMR: Most Recent Vital Signs Temp Pulse Resp BP Pulse Ox 36.6 C 73 16 130/56 L 97 09/23/23 07:21 09/23/23 07:21 09/23/23 07:21 09/23/23 07:21 09/23/23 07:21 Lab Results Blood Type / Crossmatch: No Data to Display Complete Blood Count: White Blood Count 8.59 10^3/uL (4.4-10.8) 09/12/23 15:53 Red Blood Count 4.75 10^6/uL (4.36-5.78) 09/12/23 15:53 Hemoglobin 14.9 g/dL (13.5-17.5) 09/12/23 15:53 Hematocrit 44.6 % (40.0-50.0) 09/12/23 15:53 Platelet Count 320 10^3/uL (130-400) 09/12/23 15:53 Complete Metabolic Panel: Sodium 142 mmol/L (136-145) 09/12/23 15:53 Potassium 3.8 mmol/L (3.5-5.1) 09/12/23 15:53 Chloride 105 mmol/L (98-107) 09/12/23 15:53 Carbon Dioxide 27.1 mmol/L (21.0-32.0) 09/12/23 15:53 BUN 15 mg/dL (7-18) 09/12/23 15:53 Creatinine 1.2 mg/dL (0.70-1.30) 09/12/23 15:53 Est GFR (CKD-EPI 2020) 61.13 (mL/min/1.73m2) 09/12/23 15:53 Calcium 9.5 mg/dL (8.5-10.1) 09/12/23 15:53 Glucose 112 mg/dL (74-106) H 09/12/23 15:53 Liver Function Panel: No Data to Display Coagulation Panel: No Data to Display Cardiac Panel: No Data to Display Arterial Blood Gas: No Data to Display Venous Blood Gas: No Data to Display Pancreas Panel: No Data to Display Thyroid Panel: No Data to Display Infectious Disease: No Data to Display Blood Cultures: No Data to Display Toxicology Panel: No Data to Display Anesthesia Assessment and Plan Anesthesia History Personal History: No History of Anesthesia Complications Family History: No Family History of Anesthesia Complications Exercise Tolerance Exercise Tolerance: Metabolic Equivalents>4 Pertinent Negatives Pertinent Negatives: No Symptoms of GERD, No Major Cardiovascular Symptoms or Complaints and No Major Pulmonary Symptoms or Complaints Cardiac & Pulmonary Exam Cardiac Exam: Normal S1/S2 Heart Sounds Pulmonary Exam: Clear Bilateral Breath Sounds Implantable Cardiac Device Does patient have a Pacemaker or an ICD?: No Airway Exam Known Difficult Airway: No Mallampati Class: 1 Mouth Opening: Normal (> 3cm) Thyromental Distance: Greater than 3 cm Neck Range of Motion: Full ROM Neck Circumference: Normal Teeth Condition: Normal Dentition ASA Classification ASA Score: ASA 2 Emergency Case?: No NPO Status NPO Status: NPO Clears >2 hours, Solids >8 hours Anesthesia Plan Resuscitation Status: Full Code Anesthesia Technique: Spinal Anesthesia Airway Planned: Natural Airway Pain Management: Surgeon and patient request nerve block Monitors Used: Standard Monitors
[2023-09-23] MEDS: ceFAZolin 2 GM/50 ML BAG IVPB (08:52)
--- NOTE | 2023-09-23 09:23 | W.ANESNERVE ---
Nerve Block Single Injection Procedure Date and Time Date Performed: 09/23/23 Procedure Start: 08:24 Location Where Procedure Performed Procedure Location: Day Surgery Unit Reason Performed: Postoperative Analgesia Requesting Provider: Edy Elmore Timeout Performed Timeout Performed: Yes Monitoring Used ECG, Blood Pressure, SpO2 and See EMR for corresponding vital signs Sterility Sterility: Hand Hygiene, Surgical Cap, Surgical Mask, Sterile Gloves and Chlorhexidine Sedation Given During Procedure Sedation Given (Indicate Dose Given): No Sedation given Patient Mental Status Patient Mental Status: Awake Nerve Block 1st Nerve Block: Laterality: Right Block Type: Adductor Canal Ultrasound Image Saved?: Yes Needle / Catheter Used: 100mm SonoPlex II Local Anesthetic Bolus (Indicate Dose Given): Lidocaine used for local infiltration of skin, Injected in 3-5ml increments after negative blood aspiration and Bupivacaine 0.25% Dose:: 20ml Additives (Indicate Dose Given): None Ultrasound: Sterile probe cover and gel used Nerve Stimulator: Not Used Paresthesia: None Procedure Tolerated: No Complications and Patient tolerated well Procedure Outcome: Successful Performed By: Simon Mendez
--- NOTE | 2023-09-23 09:58 | W.PM.DS.N ---
Date of service: 09/23/23 Time of Service: 10:02 DS: Diagnosis Discharge Diagnosis (1) Osteoarthritis of right knee: Status: Chronic Discharge Plan Disposition Patient Disposition: HOME Condition: Good Discharge Details Reason For Visit: Right knee DJD Attending Provider: Edy Elmore Primary Care Provider: Joaquin Barajas Home Meds and New Rx's Prescriptions: New acetaminophen 500 mg tablet 1,000 mg PO Q8H PRN Qty: 90 0RF Rx Instructions: Take two tablets up to every 8 hours as needed for pain aspirin 81 mg tablet,delayed release (DR/EC) 81 mg PO BID 30 Days Qty: 60 0RF celecoxib [Celebrex] 200 mg capsule 200 mg PO BID PRNQty: 60 0RF Rx Instructions: Take one tablet twice daily for pain and inflammation docusate sodium [Colace] 100 mg capsule 100 mg PO BID Qty: 30 0RF pantoprazole 40 mg tablet,delayed release (DR/EC) 40 mg PO DAILY 14 Days Qty: 14 0RF dexamethasone 4 mg tablet 4 mg PO DAILY Qty: 2 0RF Rx Instructions: Take one tablet once daily for two days gabapentin 300 mg capsule 300 mg PO QHS Qty: 14 0RF Rx Instructions: Take one tablet at bedtime oxycodone 5 mg tablet 5 mg PO Q4H PRNQty: 18 0RF Rx Instructions: Take one tablet up to every 4 hours as needed for severe postoperative pain Continued tamsulosin 0.4 mg capsule 0.8 mg PO DAILY Qty: 180 3RF Rx Instructions: Note dosage increase PreserVision AREDS 2 Plus MV 200 mcg-15 mcg- 5 mg-1 mg capsule 1 cap PO DAILY nifedipine [Procardia XL] 90 mg tablet extended release 24hr 90 mg PO DAILY spironolactone 25 mg tablet 25 mg PO DAILY metoprolol succinate 50 mg tablet extended release 24 hr 25 mg PO DAILY Discharge Instructions Additional Instructions: Total Knee Discharge Instructions Activity: The most important activity is to walk and to work on gentle motion (both flexion and extension). You should try to take short walks a few times a day. It is important that when resting you work on keeping the knee straight. Avoid putting a pillow behind the knee as this will encourage flexion. Work on range of motion exercises as provided by Physical Therapy. - Start outpatient physical therapy within 2 weeks. - You should wear the DORY hose on both legs for 2 weeks. You may remove these at night. You may also use any compression sock in place of the DORY hose. - Utilize [employer] to review exercises, see videos on exercises and obtain basic information pertaining to your surgery and your recovery. Dressing: Remove the Anupam wrap by 2 days after your surgery and put on the DORY stocking given to you from the hospital. Keep the surgical dressing (underneath the ANUPAM wrap) in place for at least one week. After the first week it may be removed and replaced with light gauze and tape or nothing. The wound and dressing may get wet after 3 days but avoid soaking the dressing or otherwise it will need to be changed. Many people prefer covering the dressing with cling wrap (saran wrap) to minimize it from getting soaked. If it gets wet, just pat dry. If it starts to peel off then it will need to be changed. Medications: - You should take Tylenol and anti-inflammatory Celebrex as your primary pain control medications. If the Celebrex is too expensive or not covered, please call the office for another alternative (Advil/Ibuprofen or Naproxen/Aleve) - You have been prescribed a stronger pain medication Oxycodone for breakthrough pain, take as needed as prescribed. - You have also been prescribed a stomach acid reduction agent Pantoprozole to help reduce stomach acid and reflux. - You have been prescribed Gabapentin to take at night for restlessness and nerve pain. - You will be taking Aspirin 81mg twice a day for DVT prevention unless instructed otherwise. - You have also been prescribed Decadron to take to control post-operative nausea and pain. You will start this tomorrow. - If you have constipation you should take Colace (which has been prescribed) or Miralax (which is available [id number]). It takes most people 3-4 days to have a bowel movement. Follow-up: 2 weeks If you have any acute concerns or questions, please do not hesitate to contact the office at [phone]. You may contact Dr. Elmore with any questions after hours through the hospital at [phone] or on his cell phone at [phone]. Stand Alone Forms: Anesthesia Discharge Inst., [place].Nerve Block Instructions, Dee Miramontes (DSU) Referrals: Edy Elmore MD [ [facility] STAFF PHYSICIAN] - Equipment/Supplies: Walker Activity:: Elevate Remove Dressings/Wound Care:: Do Not Remove Shower/Bathe:: 72 hours and Cover Diet:: As Tolerated Discharge Data Discharge Date/Time-TO BE ENTERED AT DEPARTURE: 09/23/23 14:34 DS: Summary Time Spent with Patient providing and/or coordinating discharge services: Less than 30 minutes Status at Discharge Functional status at discharge: uses cane/walker Overall status at discharge: patient is progressing back to baseline Mental Status: mental status grossly normal Speech and Movement: speech and movement normal Mood: congruent mood Affect: normal affect Exam Psych Mental Status: mental status grossly normal Speech and Movement: speech and movement normal Mood: congruent mood Affect: normal affect DS: Data Vitals/I&O Vitals and I&O: Vital Signs Temperature 97.7 F 09/23/23 08:28 Temperature Source Skin 09/23/23 08:28 Pulse 68 09/23/23 08:28 Respiratory Rate 14 09/23/23 08:28 Respiratory Depth Normal 09/23/23 07:21 Blood Pressure 114/62 09/23/23 08:28 Blood Pressure Mean 79 09/23/23 08:28 Blood Pressure Position Sitting 09/23/23 08:20 Pulse Oximetry 94 09/23/23 08:28 Oxygen Delivery Method Room Air 09/23/23 08:28 Oxygen Flow Rate 0 09/23/23 08:28 Pain Level 0 09/23/23 08:28 Comment pt tolerated procedure well, no concerns noted at this time. 09/23/23 08:28 Intake & Output 09/22/23 09/22/23 09/23/23 11:59 23:59 11:59 Intake Total 110 / 110 Balance 110 / 110 Weight 165 lb 15.988 oz 168 lb 10.458 oz Intake: IV 110 / 110 PFSH All Active Problems Post-nasal drip (Acute) resolved with inhaler which he no longer uses and changing sleeping position Osteoarthritis of right knee (Chronic) Sensorineural hearing loss (Acute) Bilateral hearing aides BPH w urinary obs/LUTS (Acute) Sensorineural hearing loss of both ears (Acute) Abnormal auditory perception of both ears (Acute) History of melanoma (Acute) s/p biopsies Medical History Hypertension Surgical History Status post left rotator cuff repair History of trigger finger LMF History of back injury 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[facility] [place] [facility] [place] 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) History of esophagogastroduodenoscopy (EGD) Hx of colonoscopy Social History Smoking/Tobacco Use Status: Never Smoking risk assessment performed?: Yes Alcohol Intake: current Alcohol Intake frequency: 0-2 drinks per day Alcohol type: beer, wine and hard liquor Drug use: Never Substance use type: does not use Housing: house Do you feel safe at home: Yes Additional Social history: lives alone- Dtr Isis will stay with patient post-op as well as granddaughter: Saritha Pily Time Spent with Patient Time Spent with Patient: <45 minutes Time was spent: preparing to see the patient(eg.review tests), ordering medications,tests, procedures, indepentently interpreting results and counseling the patient
--- NOTE | 2023-09-23 10:26 | ROE_ITS ---
Date of service: 09/23/23 Time of Service: 09:00 Operative Note Operative Note DATE OF PROCEDURE: 09/23/23 PRE-OP DIAGNOSIS: Right Knee Osteoarthritis POST-OP DIAGNOSIS: same PROCEDURE: Right Total Knee Replacement SURGEON: Edy Elmore ANESTHESIA TYPE: Spinal Refer to Anesthesia Record ESTIMATED BLOOD LOSS: 50 PATHOLOGY: none sent TOURNIQUET TIME: 0 COMPLICATIONS: None Patient was transported to: PACU Patient's condition: stable Implants: 1. Depuy Attune Cementless Cruciate Retaining Femoral Component, Size 7 2. Depuy Attune Cementless Fixed Bearing Tibial Component, Size 7 3. Depuy Attune 7x7 CR/FB Poly 4. Depuy Attune Patellar Component, Size 35 Indications: I have seen Sven in clinic for symptoms of knee arthritis, confirmed with radiographic findings. He has exhausted nonoperative methods and was having significant limitations in daily function and desired better function and less pain. I discussed the technical details of a knee replacement. I explained the risks of the procedure to include, but not limited to, bleeding, infection, pain, stiffness, fracture, damage to nerves and vessels, damage to muscles and tendons, loosening, need for repeat procedure, blood clot and cardiopulmonary demise. Despite these risks, Sven elected to proceed. Findings: There was significant signs of arthritis throughout the knee, particularly of the patellofemoral compartment. Procedure Description: Sven was greeted in the preoperative holding area where the correct side was identified and marked. The consent was reviewed with the patient and signed. T he history and physical was updated. All questions were answered. Preoperative medications were administered: Acetaminophen 1000mg, Celebrex 400mg, and Gabapentin 300mg. An adductor canal block was then administered by the anesthesia team in the PACU. He was taken back to the operating room. A spinal anesthestic was then administered. The patient was placed into the supine position on the operating room table. A nonsterile tourniquet was placed high onto the leg but only used for cementing. Posts were placed for positioning during the procedure. All bony prominences were well padded. Prophylactic antibiotics in the form of Cefazolin were administered. 1g of Tranxemic Acid was given intravenously within 30 minutes of incision. The right leg was then prepped with Chloraprep and draped in a standard fashion with impervious stockinette. A second prep with Chloraprep was performed prior to application of Iodine impregnated skin protection. A timeout to confirm correct identity, side and site, procedure, allergies, anesthesia, and medical concerns was performed. With the knee in some flexion, a midline incision was made overlying the knee. Full thickness skin flaps were raised once the extensor mechanism was encountered. These were raised medially and laterally. Any bleeding was controlled with electrocautery. Once the extensor mechanism was fully exposed, a medial parapatellar arthrotomy was performed in a flexed position. All bleeding from the arthrotomy and the geniculate arteries was coagulated. A medial subperiosteal peel was performed with electrocautery to the midcoronal plane. The fat pad was removed while keeping the patellar tendon protected. The anterior distal femur synovium was removed for later visualization. The ACL and PCL were resected and the anterior horn of the lateral meniscus was transected. The knee was then flexed with the patella everted. Using a step drill, and based on preoperative templating, the femoral canal was entered. This was done with a step drill without any difficulty. The intramedullary distal femoral cut guide was inserted, set to a 6 degree valgus cut and 9mm cut thickness. The distal femoral cut guide was then held in position and pinned. With the soft tissues protected, the distal cut was performed. This was passed over a few times to ensure a planar cut. I then turned attention to the tibia. The extramedullary guide was placed onto the leg. The distal aspect was slid medial to adjust for position of center of ankle and stay in line with shaft of the tibia. Approximately 5 degrees of posterior slope was kept in the proximal cutting guide. The center of the guide was aligned with the PCL. The stylus was used to assess cut thickness. The medial side, most involved side, was set for a 5mm cut. This was then held in position and pinned into place with 2 additional pins and a cross pin for stability. The medial and lateral collateral ligaments were protected and the cut was performed. With this completed, it was assessed and noted to be of appropriate dimensions. The guide was removed. A spacer block was inserted and the knee was brought into extension. The 7mm spacer block provided full extension, without hyperextension and with stability of both the medial and lateral collateral ligaments was assessed. The pins from the femur and the tibia were then removed. The distal femur was then sized. The anterior stylus was placed onto the lateral ridge of the anterior femur. This indicated a size 7 femur. The external rotation of the guide was adjusted to 5 degrees to match the epicondylar axis, perpendicular to Rains?s line. The 4-in-1 cutting guide was the placed. The posterior medial femur cut was evaluated and appeared of good thickness. The spacer block was inserted underneath the cutting guide and stability was confirmed in 90 degrees of flexion. An raissa wing was used to confirm appropriate position of the anterior cut to avoid notching. This cutting guide was ensured to be flush on the cut surface and then pinned into place with headed pins. While protecting the soft tissues, quad tendon, and collateral ligaments, the anterior and posterior cuts were performed with a saw. The central two pins were removed and the posterior and anterior chamfers were cut next. The notch-cutting guide was placed. This was pinned to lateralize the femoral component as much as possible while keeping it flush on the cut surface. This was then pinned into position. A reciprocating saw was used to make the notch cut. A rasp smoothed the cut surfaces. The medial and lateral menisci were removed. A trial femoral component was then inserted, impacted down to the cut surfaces, and the lug holes were drilled. A provisional trial tibial component was placed and the knee was brought through range of motion. There was noted to be excellent extension and flexion. There was no significant instability. The patella was tracking without thumbs. A size 7mm polyethylene component provided the best range of motion and stability with less than 2mm gapping with medial and lateral stress and full extension without significant hyperextension. The tibial cut surface was fully exposed. The tibia was then sized as a 7. The tibia had been previously marked during trialing to correspond to the center of the tibial component to help with rotation. The trial was aligned to this dann, approximately rotated to the medial 1/3rd of the tibial tubercle. The trial was pinned into place. The tibia was prepared with a reamer and a keel punch and lug holes. The knee was then brought into extension and the patella was measured as 22mm. Using the patellar clamp and cut guide, this was resected to a flat surface with at least 13mm of thickness remaining. The size 35 patella fit the best. This was oriented and then clamped into position. The lugs were drilled. The trial components were removed. The final components were opened on the back table. The periosteal and capsular tissues, especially posteriorly, around the knee were then systematically injected with a periarticular cocktail consisting of 246mg of Ropivacaine, 0.5mg of Epinephrine, 0.08mg of Clonidine, and 30mg of Ketorolac, diluted to 100cc. On the back table, with the implants opened, the cement was mixed. One batch of high viscosity cement was prepared with vacuum assistance. After the cement was ready a small amount was placed on the cut surface of the patella and the patellar button was clamped into position and held. While the cement was hard ening, the cementless knee components were placed. Starting with the tibial component, the tibia was subluxed anteriorly and the lug holes of the component were lined up. The tibia was then impacted with an impactor and mallet until the tibial component was in contact with the tibia. The final polyethylene component was inserted. Then, the femoral component was inserted. The lug holes were aligned and the component was impacted into position. The knee was irrigated with Irrisept Chlorhexadine solution. This was allowed to sit in the knee for 3 minutes and then it was irrigated out with saline. After the cement had finally cured, approximately 15min, the clamp was removed from the patella and the knee was taken through range of motion. The patella was tracking with a no-thumbs technique. The capsule was then reapproximated with a No. 1 Vicryl at multiple locations. The capsule was finally closed with a No. 2 Stratafix, barbed suture. The second dosing of 1g TXA was started. Deep tissues were then reapproximated with 0 Vicryl and 2-0 Vicryl. The skin was closed with a running 3-0 Monocryl in a subcuticular fashion. This was reinforced with skin glue. A Mepilex silver dressing was applied along with a [id number] JASON wrap. A CryoCuff was applied. Sven was transferred to the hospital bed without difficulty an suffering no apparent complication. Sven has a good prognosis. Physical therapy will start today and without restrictions, weight-bearing as tolerated. Aspirin 81mg BID will be used for DVT prophylaxis.
--- NOTE | 2023-09-23 11:01 | W.ANESPOSTOP ---
Postoperative Evaluation Date, Time and Location Date Performed: 09/23/23 Time Performed: 11:01 Patient Location: PACU Vital Signs Most Recent Imported Vital Signs: Most Recent Vital Signs Temp Pulse Resp BP Pulse Ox 36.5 C 68 14 114/62 94 09/23/23 08:28 09/23/23 08:28 09/23/23 08:28 09/23/23 08:28 09/23/23 08:28 Pain Score Most Recent Pain Score: Most Recent Pain Score Pain Level [Right Knee] 0 09/23/23 07:58 Pain Level 0 09/23/23 08:28 Assessment Mental Status: Awake (Alert & Oriented to Patient Baseline) Airway and Respiratory Function: Patent airway with normal (patient baseline) respiratory exam Cardiovascular Function: Hemodynamically Stable Hydration Status: Adequately Hydrated Nausea & Vomiting: No Nausea or Vomiting Pain: Pt. Denies Any Pain Peripheral Nerve Block: Regional nerve block not resolved at time of post operative discharge
[2023-09-23] MEDS: oxyCODONE 5 MG TAB PO (12:37)
--- NOTE | 2023-09-23 13:55 | PT.INIE ---
PT Notes Visit Reasons: Right knee DJD Physical Therapy Day Surgery Initial Evaluation Date: 09/23/2023 Referring Doctor: EUGENIA Calderon PT Orders: PT CONSULT: S/P Ortho Surgery Precautions: WBAT on right LE with AD. Patient Profile/Admitting Diagnosis: Sven is an 78-year-old male with degenerative joint disease of the right knee and status post right total knee arthroplasty on postoperative day 0. PMHX: Medical History (Updated 09/11/23 @ 15:29 by Mariama Wilson) Hypertension Surgical History (Updated 09/11/23 @ 15:47 by Mariama Wilson) Status post left rotator cuff repair History of trigger finger LMF History of back injury 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[facility] [place] 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) History of esophagogastroduodenoscopy (EGD) Hx of colonoscopy Social History/Home Situation: Lives alone in a private home with 3 steps to enter with no rails. He has a flight of steps to the bedroom of the house with rails on B sides. Independent with all aspects of ADLs prior to surgery. Equipment Owned/DME: FWW Subjective: Reports 4/10 pain in the R knee at rest, decreased to 2/10 after mobility performance. Denies headache, chest pain, and lightheadedness throughout session. Back felt good standing up and walking. daughter sarah is 30 minutes away. Nurse Hina gave patient pain pill half an hour before PT arrival. Objective: General Observation: Resting in bed. JASON wraps to R LE. Cryocuff to R knee TEDS to L leg. Mildly hard of hearing. Mental Status: A and O x 4 Pain: As above ROM: Right Lower Extremity: Hip flexion WFL. Hip abduction WFL. Knee flexion 0-90 degrees. Ankle dorsiflexion WFL. Ankle plantarflexion WFL. Left Lower Extremity: Hip flexion WFL. Hip abduction WFL. Knee flexion WFL. Ankle dorsiflexion WFL. Ankle plantarflexion WFL. Strength: Right Lower Extremity: Hip flexors 4/5. Hip abductors 5/5. Knee flexors 3-/5. Knee extensors 4-/5. Ankle dorsiflexors 5/5. Ankle plantarflexors 5/5. Left Lower Extremity:Hip flexors 5/5. Hip abductors 5/5. Knee flexors 5/5. Knee extensors 5/5. Ankle dorsiflexors 5/5. Ankle plantarflexors 5/5. Sensation: Intact as to pain and light pressure in B LE Bed Mobility/Transfers: Moderate verbak cueing provided for use of B UE for support and increased stability during movement transi'stions, posure, and safe technique to reduce pain report and fall risk. Supine to sit stand by assist Sit to stand stand by assist Stand to sit stand by assist Bed to chair stand by assist Gait: Facilitated safe and correct performance of level surface ambulation covering a distance of 150 feet using FWW with step through reciprocal heel-toe gait pattern requiring only stand by assist with minimal verbal cueing provided for limb advancement, safe gait pattern, walker management, and posture. Stairs: Guided patietn with safe and correct negotiation of 6 x 4-inch steps and 4 x 6-inchs teps while holding onto SPC and 1 rail using step-to gait pattern with moderate cued psorvide to increase flexion on the R knee during each ascent. Stand assist provided. Balance: Static Sitting: Normal Dynamic Sitting: Normal Static Standing: Fair Dynamic Standing: Fair Special Tests: Mobility Limitations Standardized Measure [facility] AM-PAC 6 clicks Basic Mobility Inpatient Short Form: Raw Score: 24 CMS Score: 0% deficit Informed Consent/Education: Patient patient instructed in purpose of PT consult. Packet containing TKA exercise protocol has been given to patient. Education and training on initial set of exercises that can be done at home have been completed with patient. Trained patient with correct performance of exercises below to maximize motor control, joint flexibility, soft tissue extensibility of the R knee musculature: Access Code: [email or web address] URL: [email or web address] Date: 09/23/2023 Prepared by: Noemi Siwft Exercises - Supine Quad Set - 1 x daily - 7 x weekly - 1 sets - 10 reps - 5 hold - Supine Heel Slide - 1 x daily - 7 x weekly - 1 sets - 10 reps - 5 hold - Supine Ankle Pumps - 1 x daily - 7 x weekly - 1 sets - 10 reps - 5 hold - Small Range Straight Leg Raise - 1 x daily - 7 x weekly - 1 sets - 10 reps - 5 hold - Seated March - 1 x daily - 7 x weekly - 1 sets - 10 reps - 5 hold Assessment: Patient requires the use of a FWW for all moility ADL performance to minimize fall risk and increase independence. Patient presents with clinical signs and symptoms consistent with current/admitting diagnoses that have resulted to mobility limitations, gait instability, generalized weakness, and impairment of motor control as demonstrated by the following impairment level findings: 1. Decreased strength to R knee major muscle groups 2. Impaired standing balance 3. Limitation of joint range of motion in R knee Impairments are contributing to the following functional limitations: 1. Inability to safely ambulate without assistive device 2. Increase completion time for mobility ADL performance 3. Increased fall risk Patient is assessed as a 25779 moderate complexity based on the following: History: 78-year-old male with impairment level findings, functional limitations, and past medical history as indicated above Examination: Demonstrable impairment in strength, balance, and mobility level with underlying impairments and functional limitations as documented above Presentation: Evolving Decision Makin moderate complexity Goals: N/A. PT evaluation and 1-2 treatment sessions only for functional mobility training using recommended AD and for HEP instruction. Plan of Care/Treatment Plan: N/A. PT evaluation and 1-2 treatment session only for functional mobility training using recommended AD and for HEP instruction. DISCHARGE RECOMMENDATIONS: Home when medically cleared by orthopedic surgeon. Recommend outpatient PT services in order to optimize functional mobility outcomes and facilitate return to independent community ambulation without an assistive device. TREATMENT CODE/TIME: 01641 x 20 minutes for 1 unit, 64223 x 25 minutes for 2 units and 13:05 PM. Thank you for the opportunity to participate in the care of this patient. Noemi Swift PT, DPT, CLT [facility] [place], [place]
== END 2023-09-23 14:34 | disposition home or self-care (01) ==
PROVIDERS: PCP Family Medicine; Visit Provider Student in an Organized Health Care Education/Training Program
PROC: (CPT 27447; principal; 2023-09-23 09:15)
DX: M17.11 Unilateral primary osteoarthritis, right knee (principal); H90.3 Sensorineural hearing loss, bilateral; N40.1 Benign prostatic hyperplasia with lower urinary tract symptoms; N13.8 Other obstructive and reflux uropathy
CPT/HCPCS: 27447; C1776; 76942; 97162; 97530; J0690; J1100; J2250; J2405

== ENCOUNTER 2023-10-09 13:54 | Outpatient (CLI) | payer MEDICARE, SELFPAY ==
--- NOTE | 2023-10-09 13:30 | DI.RAD_ITS ---
Exam(s) XR KNEE RT 1V XR STANDING ALIGNMENT EXAM: XR STANDING ALIGNMENT CLINICAL HISTORY: 1ST POST OP R TKA. TECHNIQUE: 2D digital imaging was performed. Standing AP views were performed from the pelvis throu gh the ankles. COMPARISON: CR XR KNEE RT 2V AP,LAT from 08/18/2023 CR XR STANDING ALIGNMENT from 08/18/2023 CR XR KNEE RT 1V from 10/09/2023 FINDINGS: BONES: No acute fracture is present. No bony destructive lesion is seen. Leg length discrepancy: Slight overall leg length discrepancy with the left ischium projecting a few millimeters superior to the right. JOINTS: Knees: Right knee prosthesis now in place which show satisfactory alignment. On the left kne e shows calcific chondrocalcinosis and mild degenerative changes. The ankle joints are unremarkable. Hips: No change right hip prosthesis. Left hip joint space is maintained. SOFT TISSUE: Vascular calcifications. bilateral lower leg edema. IMPRESSION: Status post placement of right knee prosthesis. No change right hip prosthesis. Minimal overall leg length discrepancy. DATA REPOSITORY: RADIATION DOSE DELIVERED:
== END 2023-10-09 13:55 | disposition home or self-care (01) ==
LOC: DIORS 13:55
PROVIDERS: PCP Family Medicine; Referring Provider Family Medicine; Visit Provider Physician Assistant
DX: Z96.651 Presence of right artificial knee joint (principal); Z47.1 Aftercare following joint replacement surgery
CPT/HCPCS: 73560; 77073

== ENCOUNTER → 2023-11-06 11:09 | Outpatient (BNVA) | payer MEDICARE, SELFPAY | PROVIDERS: PCP Family Medicine; Referring Provider Family Medicine; Visit Provider Student in an Organized Health Care Education/Training Program | DX: Z47.1 Aftercare following joint replacement surgery (principal); Z96.651 Presence of right artificial knee joint ==

== ENCOUNTER → 2024-06-07 08:28 | Outpatient (BNVA) | payer MEDICARE, SELFPAY | PROVIDERS: PCP Family Medicine; Referring Provider Family Medicine; Visit Provider Nurse Practitioner Gerontology | DX: N40.1 Benign prostatic hyperplasia with lower urinary tract symptoms (principal); N13.8 Other obstructive and reflux uropathy | CPT/HCPCS: 51798; 99213 ==

== ENCOUNTER → 2024-08-25 09:49 | Outpatient (BNVA) | payer MEDICARE, SELFPAY | PROVIDERS: PCP Family Medicine; Referring Provider Family Medicine; Visit Provider Nurse Practitioner Gerontology | DX: R31.0 Gross hematuria (principal) | CPT/HCPCS: 99442 ==

== ENCOUNTER 2024-09-27 15:16 | Outpatient (CLI) | payer MEDICARE, SELFPAY ==
--- NOTE | 2024-09-27 10:15 | DI.RAD_ITS ---
Exam(s) XR KNEE RT 2V AP,LAT EXAM: XR KNEE RT 2V AP,LAT CLINICAL HISTORY: ANNUAL F/U R TKA. TECHNIQUE: 2D digital imaging was performed. Two images were obtained. AP and lateral views were ob tained. COMPARISON: CR XR KNEE RT 2V AP,LAT from 08/18/2023 CR XR STANDING ALIGNMENT from 10/09/2023 CR XR KNEE RT 1V from 10/09/2023 FINDINGS: BONES: There are stable post operative changes of a right total knee arthroplasty present. No fractu re or dislocation. JOINTS: The orthopedic hardware is in good position. No evidence of hardware loosening. SOFT TISSUE: Atherosclerotic calcification is present. IMPRESSION: Stable right total knee arthroplasty. DATA REPOSITORY: RADIATION DOSE DELIVERED:
== END 2024-09-27 15:17 | disposition home or self-care (01) ==
LOC: DIORS 15:16
PROVIDERS: PCP Family Medicine; Referring Provider Family Medicine; Visit Provider Student in an Organized Health Care Education/Training Program
DX: Z47.1 Aftercare following joint replacement surgery (principal); Z96.651 Presence of right artificial knee joint
CPT/HCPCS: 99213; 73560

== ENCOUNTER → 2025-06-06 09:45 | Outpatient (BNVA) | payer MEDICARE, SELFPAY | PROVIDERS: PCP Family Medicine; Referring Provider Family Medicine; Visit Provider Nurse Practitioner Gerontology | DX: N40.1 Benign prostatic hyperplasia with lower urinary tract symptoms (principal); N13.8 Other obstructive and reflux uropathy; M54.50 Low back pain, unspecified; R39.9 Unspecified symptoms and signs involving the genitourinary system; L89.159 Pressure ulcer of sacral region, unspecified stage | CPT/HCPCS: 99214; 81002; 51798 ==

== ENCOUNTER 2025-06-16 11:44 | Outpatient (CLI) | payer MEDICARE, SELFPAY ==
--- NOTE | 2025-06-16 09:15 | DI.RAD_ITS ---
Exam(s) XR KNEE LT 4V AP,LAT,BLANCHE,PAT EXAM: XR KNEE LT 4V AP,LAT,BLANCHE,PAT CLINICAL HISTORY: LEFT KNEE PAIN. TECHNIQUE: 2D digital imaging was performed. Three views. COMPARISON: CR XR KNEE RT 2V AP,LAT from 09/27/2024 FINDINGS: BONES: No acute fracture is present. No bony destructive lesion is seen. JOINTS: There is severe narrowing of the lateral patellofemoral joint and mild lateral patellar subluxation. The femoral tibial joint spaces are maintained. No joint effusion is seen. Chondrocalcinosis. SOFT TISSUE: Rounded densities noted posteriorly which likely represent loose bodies within a Hodges's cyst. Severe vascular calcifications. IMPRESSION: Severe degenerative changes of the lateral patellofemoral joint. Rounded calcification likely present within a Hodges's cyst. DATA REPOSITORY: RADIATION DOSE DELIVERED:
--- NOTE | 2025-06-16 09:30 | DI.RAD_ITS ---
Exam(s) XR HIP LT COMPLETE AP PELVIS EXAM: XR HIP LT COMPLETE AP PELVIS CLINICAL HISTORY: left hip pain. TECHNIQUE: 2D digital imaging was performed. Two views. COMPARISON: CR XR HIP RT AP LAT ONLY from 10/01/2021 FINDINGS: BONES: No acute fracture is present. No bony destructive lesion is seen. There is a right hip prosthesis which appears unchanged in alignment. JOINTS: No dislocation present. The SI joints and pubic symphysis are intact. The left hip joint space is maintained. There is spurring at the acetabulum. SOFT TISSUE: Prominent vascular calcifications. IMPRESSION: Mild degenerative changes of the left hip. Stable appearance of right hip prosthesis. DATA REPOSITORY: RADIATION DOSE DELIVERED:
== END 2025-06-16 11:45 | disposition home or self-care (01) ==
LOC: DIORS 11:44
PROVIDERS: PCP Family Medicine; Referring Provider Family Medicine; Visit Provider Student in an Organized Health Care Education/Training Program
DX: M25.562 Pain in left knee (principal); M25.552 Pain in left hip; M17.12 Unilateral primary osteoarthritis, left knee; M16.12 Unilateral primary osteoarthritis, left hip; Z96.641 Presence of right artificial hip joint; M71.22 Synovial cyst of popliteal space [Baker], left knee
CPT/HCPCS: 99213; 73502; 73564

== ENCOUNTER → 2025-08-03 08:22 | Outpatient (BNVA) | payer MEDICARE, SELFPAY | PROVIDERS: PCP Family Medicine; Referring Provider Family Medicine; Visit Provider Nurse Practitioner Gerontology | DX: R31.0 Gross hematuria (principal) | CPT/HCPCS: 99214 ==

== ENCOUNTER → 2025-08-19 03:26 | Outpatient (CLI) | payer MEDICARE, SELFPAY ==
--- NOTE | 2025-08-19 06:30 | DI.CT_ITS ---
Exam(s) CT ABDOMEN PELVIS WO/W EXAM: CT ABDOMEN PELVIS WO/W CLINICAL HISTORY: gross hematuria,r31.9,r31.0 TECHNIQUE: Imaging Protocol: Axial computed tomography images with coronal and sagittal reformatted images were created and reviewed. CONTRAST MATERIAL: Intravenous: Omnipaque 350 Contrast volume:75 mL Oral: No COMPARISON: No exams were available for comparison FINDINGS: ABDOMEN: Lung Bases: No acute abnormality. Liver: Normal density. There are tiny hypodensities in the liver which are too small for further characterization but likely reflect small cysts. There are no suspicious hepatic masses. Portal, Superior Mesenteric, and Splenic Veins: Unremarkable. Gallbladder and Biliary Tract: No radiodense calculus or dilation. Pancreas: Normal density, no abnormal calcifications or inflammatory process. Spleen: Calcified granuloma is seen in the spleen. Adrenals: No masses seen. Kidneys: Normal size, contour and axis. No radiodense stones or obstructive uropathy. There are bilateral renal cysts. The largest on the right measures 11.3 AP by 10.7 transverse by 10.9 craniocaudad cm. The 2 largest on the left measure 10.1 transverse by 7.5 AP by 9.3 craniocaudad cm and 10.8 AP by 7.8 transverse by 10.4 craniocaudad cm. No solid or enhancing nodule is seen in the cysts. No follow-up is recommended. There are no suspicious renal masses. Abdominal Aorta: Abdominal portion non-dilated. Atherosclerotic calcification is present. There is dense atherosclerotic calcification at the origin of the superior mesenteric artery with less than 50 percent stenosis. There is atherosclerotic calcification at the origins of both renal arteries with less than 50 percent stenosis. Bowel: There is diverticulosis seen in the colon without evidence of acute diverticulitis. There is no evidence of bowel obstruction or bowel wall thickening. Appendix is unremarkable. Peritoneal Cavity: No ascites, collection or mesenteric inflammatory response. No free air.There are findings suggestive of a prior left inguinal hernia repair. Lymph Nodes: Within normal limits. Bones: Within normal limits for the patient's age. There are L3 and L4 laminectomies. The patient has a right total hip arthroplasty. Soft Tissues: There is a small fat containing umbilical hernia. PELVIS: Bladder: Symmetric distention, no gross wall thickening. Reproductive Organs: Prostatomegaly. Lymph Nodes: Within normal limits. Bones: Within normal limits for the patient's age. IMPRESSION: 1. There is no evidence of nephrolithiasis or hydronephrosis. 2. Marked prostatomegaly. 3. Bilateral renal cysts. 4. Marked atherosclerotic disease in the abdomen and pelvis. 5. Colonic diverticulosis without evidence of acute diverticulitis. RADIATION DOSE DELIVERED: 1,387mGy.cm Total DLP 1,387mGy.cm Total DLP DATA REPOSITORY: All CT scans at this facility are submitted to the National Radiology Data Registry (NRDR) Dose Index Registry (DIR) with the [employer] ([employer]). RADIATION OPTIMIZATION: All CT scans at this facility use at least one of these dose optimization techniques: automated exposure control; mA and/or kV adjustment per patient size (includes targeted exams where dose is matched to clinical indication); or iterative reconstruction.
[2025-08-19] MEDS: Omnipaque 350 MG/ML 500 ML BTL-Imaging package IJ (08:26)
[2025-08-19] MEDS: Normal Saline - Diluent 50 ML VIAL IJ (08:27)
[2025-08-19] MEDS: Normal Saline Flush 10 ML SYR IVP (08:27)
[2025-08-19 17:37] LABS: PSA, Diagnostic 12.9 ng/mL (<=6.5)
== END ==
LOC: DI 03:26
PROVIDERS: PCP Family Medicine; Visit Provider Nurse Practitioner Gerontology
DX: R31.0 Gross hematuria (principal); R31.9 Hematuria, unspecified
CPT/HCPCS: 74178; 82565; 84153

== ENCOUNTER 2025-09-26 11:19 | Outpatient (CLI) | payer MEDICARE, SELFPAY ==
--- NOTE | 2025-09-26 09:45 | DI.RAD_ITS ---
Exam(s) XR KNEE RT 2V AP,LAT EXAM: XR KNEE RT 2V AP,LAT CLINICAL HISTORY: ANNUAL F/U R TKA. TECHNIQUE: 2D digital imaging was performed. Two images were obtained. AP and lateral views were obtained. COMPARISON: CR XR KNEE RT 2V AP,LAT from 09/27/2024 FINDINGS: BONES: There are stable post operative changes of a right total knee arthroplasty present. No fracture or dislocation. JOINTS: The orthopedic hardware is in good position. No evidence of hardware loosening. SOFT TISSUE: Normal. IMPRESSION: Stable right total knee arthroplasty. DATA REPOSITORY: RADIATION DOSE DELIVERED:
== END 2025-09-26 11:20 | disposition home or self-care (01) ==
LOC: DIORS 11:20
PROVIDERS: PCP Family Medicine; Visit Provider Physician Assistant
DX: Z47.1 Aftercare following joint replacement surgery (principal); Z96.651 Presence of right artificial knee joint
CPT/HCPCS: 99212; 73560

== ENCOUNTER → 2025-10-11 08:33 | Outpatient (BNVA) | payer MEDICARE, SELFPAY | PROVIDERS: PCP Family Medicine; Referring Provider Family Medicine; Visit Provider Urology | DX: R31.0 Gross hematuria (principal); R97.20 Elevated prostate specific antigen [PSA] | CPT/HCPCS: 81002; 52000 ==